=== PATIENT | female | born 1955 | race Caucasian/White ===

== ENCOUNTER → 2016-03-20 | Outpatient (CLI) | payer BC ==
[2016-03-20 12:30] LABS: ABSOLUTE EOSINOPHILS # (AUTO) 0.1 10^3/uL (0.0-0.6); ABSOLUTE LYMPHOCYTES (AUTO) 1.4 10^3/uL (0.5-4.7); ABSOLUTE MONOCYTES (AUTO) 0.4 10^3/uL (0.1-1.4); ABSOLUTE NEUT (AUTO) 3.5 10^3/uL (1.7-8.2); BASOPHILS % (AUTO) 0.8 % (0-2); HEMATOCRIT 41.2 % (36.0-47.0); HEMOGLOBIN 13.7 g/dL (12.0-15.5); HGB HCT DIFFERENCE -0.1; LYMPHOCYTES % (AUTO) 24.9 % (13-45); MEAN CORPUSCULAR HEMOGLOBIN 29.2 pg (27.0-33.4); MEAN CORPUSCULAR HGB CONC 33.2 g/dL (32.0-36.0); MEAN CORPUSCULAR VOLUME 88 fl (80-97); MONOCYTES % (AUTO) 7.8 % (3-13); RED BLOOD COUNT 4.69 10^6/uL (3.72-5.28); SEGMENTED NEUTROPHILS % (AUTO) 64.5 % (42-78); WHITE BLOOD COUNT 5.5 10^3/uL (4.0-10.5)
[2016-03-20 12:58] LABS: ALANINE AMINOTRANSFERASE 26 U/L (9-52); ALBUMIN 4.4 g/dL (3.5-5.0); ALKALINE PHOSPHATASE 141 U/L (38-126); ANION GAP 9 (5-19); ASPARTATE AMINO TRANSFERASE 19 U/L (14-36); BILIRUBIN,TOTAL 0.8 mg/dL (0.2-1.3); BLOOD UREA NITROGEN 13 mg/dL (7-20); CALCIUM 10.5 mg/dL (8.4-10.2); CARBON DIOXIDE 26 mmol/L (22-30); CHLORIDE 107 mmol/L (98-107); CHOLESTEROL 222.56 mg/dL (0-200); CREATININE RESULT 0.66 mg/dL (0.52-1.25); Direct HDL 53 mg/dL (>40); GLUCOSE 85 mg/dL (75-110); POTASSIUM 4.8 mmol/L (3.6-5.0); SODIUM 141.6 mmol/L (137-145); TRIGLYCERIDES 98 mg/dL (<150)
[2016-03-20 13:10] LABS: DIRECT LDL 153 mg/dL (<100)
== END ==
LOC: LAB 12:16
PROVIDERS: ATTEND Specialist
DX: E03.9 Hypothyroidism, unspecified (principal); M05.70 Rheumatoid arthritis with rheumatoid factor of unspecified site without organ or systems involvement; Z13.1 Encounter for screening for diabetes mellitus; Z13.220 Encounter for screening for lipoid disorders
CPT/HCPCS: 36415; 80053; 80061; 82306; 83036; 84443; 85025; 86430

== ENCOUNTER 2016-07-19 00:56 | Emergency (ER) | payer BC ==
[2016-07-19] MEDS ORDERED: METHYLPREDNISOLONE INJ 125 MG/2 ML SDV IV ONE (01:30)
[2016-07-19] MEDS ORDERED: FAMOTIDINE INJ/PF 20 MG/2 ML SDV IV ONE (01:30)
--- NOTE | 2016-07-19 01:31 | ER Document Report ---
ED General - General Chief Complaint: Allergic Reaction Stated Complaint: DIFFICULTY BREATHING/POSSIBLE ALLERGIC REACTION Time Seen by Provider: 07/19/16 01:24 Notes: Patient is a 61-year-old female presents with complaint of sudden onset of urticaria and allergic reaction after eating a feel that she does take. She then started having difficulty breathing. She took her EpiPen as well as 50 mg of Benadryl. Since then her symptoms have improved but her hives continue. She does have a history of recurrent allergic reactions. She is allergic to shellfish. She is also allergic to sulfa medications and aspirin. She says Decadron makes her hallucinate. She has had prednisone and other steroids before without any difficulty. No other complaints at this time. TRAVEL OUTSIDE OF THE [place] IN LAST 30 DAYS: No - Related Data Allergies/Adverse Reactions: aspirin [Aspirin] Allergy (Severe, Verified 03/13/13 10:43) Anaphylaxis Sulfa (Sulfonamide Antibiotics) Allergy (Severe, Verified 03/13/13 10:43) Anaphylaxis Shellfish * [Shellfish] Allergy (Verified 03/17/13 06:54) Anaphylaxis dexamethasone [From Decadron] Adverse Reaction (Verified 03/17/13 07:25) Hallucinations dexamethasone sod phosphate [From Decadron] Adverse Reaction (Verified 03/17/13 07:25) Hallucinations ORANGES Allergy (Severe, Uncoded 03/13/13 10:43) Anaphylaxis Past Medical History - Social History Smoking Status: Never Smoker Frequency of alcohol use: None Drug Abuse: None Family History: Reviewed & Not Pertinent Patient has suicidal ideation: No Patient has homicidal ideation: No - Past Medical History Cardiac Medical History: Denies: Hx Heart Attack, Hx Hypertension Pulmonary Medical History: Reports: Hx Asthma Neurological Medical History: Reports: Hx Migraine. Denies: Hx Cerebrovascular Accident, Hx Seizures Renal/ Medical History: Denies: Hx Peritoneal Dialysis GI Medical History: Denies: Hx Hepatitis, Hx Ulcer Infectious Medical History: Denies: Hx Hepatitis Past Surgical History: Reports: Hx Hysterectomy, Hx Tonsillectomy. Denies: Hx Mastectomy, Hx Open Heart Surgery, Hx Pacemaker - Immunizations Hx Pneumococcal Vaccination: 01/19/13 Review of Systems - Review of Systems Notes: My Normal Review Basic REVIEW OF SYSTEMS: CONSTITUTIONAL : Denies fever, chills, or sweats. Denies recent illness. EENT: Denies eye, ear, throat, or mouth pain or symptoms. Denies nasal or sinus congestion. CARDIOVASCULAR: Denies chest pain. RESPIRATORY: some diffiuclty breathing. GASTROINTESTINAL: Denies abdominal pain. Denies nausea, vomiting, or diarrhea. Denies constipation. Last BM: MUSCULOSKELETAL: Denies neck or back pain or joint pain or swelling. SKIN: diffuse Hives. NEUROLOGICAL: Denies altered mental status or loss of consciousness. Denies headache. Denies weakness or paralysis or loss of use of either side. Denies problems with gait or speech. Denies sensory or motor loss. ALL OTHER SYSTEMS REVIEWED AND NEGATIVE. Physical Exam - Vital signs Vitals: Temp Pulse Resp BP Pulse Ox 97.4 F 74 20 117/73 97 07/19/16 00:58 07/19/16 00:58 07/19/16 00:58 07/19/16 00:58 07/19/16 00:58 - Notes Notes: General Appearance: Well nourished, alert, cooperative, no acute distress, no obvious discomfort. Vitals: reviewed, See vital signs table. Head: no swelling or tenderness to the head Eyes: PERRL, EOMI, Conjuctiva clear Mouth: No tongue swelling. Throat: No Throat swelling. Neck: Supple, no neck tenderness, No thyromegaly Lungs: No wheezing, No rales, No rhonci, No accessory muscle use, good air exchange bilaterally. Heart: Normal rate, Regular rythm, No murmur, no rub Abdomen: Normal BS, soft, No rigidity, No abdominal tenderness, No guarding, no rebound, no abdominal masses, no organomegaly Extremities: strength 5/5 in all extremities, good pulses in all extremities, no swelling or tenderness in the extremities, no edema. Skin:Hives like rash over majority of body Neuro: speech clear, oriented x 3, normal affect, responds appropriately to questions. Course - Vital Signs Vital signs: Temp Pulse Resp BP Pulse Ox 97.4 F 74 15 105/70 97 07/19/16 00:58 07/19/16 00:58 07/19/16 02:31 07/19/16 02:31 07/19/16 02:31 - Transfer of Care Notes: 07/19/16 03:27 Patients's hives are gone. Her lungs are clear. She has no pharyngeal swelling. She looks very well. She will be discharged home with prescription for adrenal Adrenaclick Pen. She is encouraged to take Benadryl for hives recur. She must return to the ER immediately if she continues to have recurrent hives, she has difficulty breathing, difficulty swallowing, or she has to use her pen. Patient agrees with plan and will be discharged home. Discharge - Discharge Clinical Impression: Allergic reaction Qualifiers: Encounter type: initial encounter Qualified Code(s): T78.40XA - Allergy, unspecified, initial encounter Condition: Good Disposition: HOME, SELF-CARE Additional Instructions: ACUTE ALLERGIC REACTION: Your symptoms are due to an allergic reaction. Allergy can cause hives, swelling of the hands, feet, and face, hoarseness, and difficulty swallowing or breathing. It may be due to exposure to medication, animal dander, foods, infection, or insect bites. Medication is a common cause, even when prior use of this same medication caused no problems. Acute treatment may include adrenalin and antihistamines. Usually, the specific allergic agent can't be identified unless repeated episodes occur. Home treatment includes the following: (1) Stop any suspicious medications. This will be discussed with you. (2) Oral antihistamines for the next four to five days. Example, diphenhydramine (Benadryl) every four hours. (3) You may also use cimetidine (Tagamet), ranitidine (Zantac), or famotidine ( Pepcid) every four hours if diphenhydramine is not controlling itching and hives. (4) Avoid aspirin until the hives completely disappear. (5) Avoid hot baths or showers until the hives are completely gone. Call the doctor if faintness, difficulty swallowing, tightness in the chest , or wheezing occurs. EPINEPHRINE: An injection of epinephrine (also called adrenalin) is used to treat allergic reactions, asthma, and some other medical conditions. It is a stimulant medication that consticts blood vessels, relaxes smooth muscles such as in the bronchioles of the lung, elevates blood pressure, and increases heart rate. It can temporarily make you feel very nervous and shakey, but it's affects last only a short time, about 15 to 30 minutes at most. STEROID MEDICATION INJECTION: You have been given an injection of medicine of the cortisone/steroid class. This medication is used to control inflammation or allergy. It is often continued as a pill for a short period of time, until the acute process subsides. There are usually no side effects from short-term use of cortisone-like medications. Some persons feel an increased sense of well-being and are not sleepy at bedtime. Long-term use of cortisone medications is best avoided, unless required for a severe condition. If your condition does not remit, or relapses after the course of corticosteroid medication, you should consult your physician. STEROID MEDICATION: You have been given a medicine of the cortisone/steroid class. This medication is used to control inflammation or allergy. It is usually only given for a short period of time, until the acute process subsides. There are usually no side effects from short-term use of cortisone-like medications. Some persons feel an increased sense of well-being and are not sleepy at bedtime. Long-term use of cortisone medications is best avoided, unless required for a severe condition. If your condition does not remit, or relapses after the course of corticosteroid medication, you should consult your physician. ANTIHISTAMINES: An antihistamine has been given and/or prescribed to control your symptoms. Antihistamines are used for many reasons, including itching, watering eyes, runny nose, allergic swelling, hives, and insect stings. Antihistamines may cause drowsiness, especially with the first dose. Do not operate machinery or drive while under the effects of the medication. Other common side effects include dry mouth and eyes. In older persons, antihistamines can occasionally cause urinary retention, constipation, and trouble focusing the eyes. Do not combine the medication with alcohol, or with any other medication without talking to your doctor. FOLLOW-UP CARE: If you have been referred to a physician for follow-up care, call the physician s office for an appointment as you were instructed or within the next two days. If you experience worsening or a significant change in your symptoms, notify the physician immediately or return to the Emergency Department at any time for re-evaluation. Please use the Adrenaclick pen and return to the ER immediately if you develop you develop difficulty breathing, difficulty swallowing, facial swelling, or feel that your reaction is severe. Please return to the ER if you have worsening rash not responding to Benadryl. Prescriptions: Epinephrine [Adrenaclick] 0.3 mg IM ONCE PRN #1 kit PRN Reason: severe allergic reaction Prednisone 10 mg PO ASDIR #42 tablet Forms: Return to Work
[2016-07-19 03:38] VITALS: BP 109/66
== END 2016-07-19 03:50 | disposition home or self-care (01) ==
LOC: ER 00:56
DX: T78.40XA Allergy, unspecified, initial encounter (principal); R06.02 Shortness of breath; L50.9 Urticaria, unspecified; X58.XXXA Exposure to other specified factors, initial encounter
CPT/HCPCS: 99283; 96374; 96375; J2930; S0028

== ENCOUNTER → 2017-08-06 | Outpatient (CLI) | payer BC ==
[2017-08-06 08:41] LABS: ABSOLUTE BASOPHILS # (AUTO) 0.1 10^3/uL (0.0-0.2); ABSOLUTE EOSINOPHILS # (AUTO) 0.2 10^3/uL (0.0-0.6); ABSOLUTE LYMPHOCYTES (AUTO) 1.4 10^3/uL (0.5-4.7); ABSOLUTE MONOCYTES (AUTO) 0.6 10^3/uL (0.1-1.4); ABSOLUTE NEUT (AUTO) 3.6 10^3/uL (1.7-8.2); BASOPHILS % (AUTO) 0.9 % (0-2); EOSINOPHILS % (AUTO) 3.8 % (0-6); HEMATOCRIT 40.5 % (36.0-47.0); HEMOGLOBIN 13.6 g/dL (12.0-15.5); LYMPHOCYTES % (AUTO) 23.8 % (13-45); MEAN CORPUSCULAR HEMOGLOBIN 29.5 pg (27.0-33.4); MEAN CORPUSCULAR HGB CONC 33.7 g/dL (32.0-36.0); MEAN CORPUSCULAR VOLUME 88 fl (80-97); MONOCYTES % (AUTO) 9.5 % (3-13); PLATELET COUNT 245 10^3/uL (150-450); RED BLOOD COUNT 4.62 10^6/uL (3.72-5.28); RED CELL DISTRIBUTION WIDTH 14.6 % (11.5-14.0); TOTAL CELLS COUNTED % (AUTO) 100 %; WHITE BLOOD COUNT 5.8 10^3/uL (4.0-10.5)
[2017-08-06 09:09] LABS: ALANINE AMINOTRANSFERASE 28 U/L (9-52); ALKALINE PHOSPHATASE 119 U/L (38-126); ANION GAP 9 (5-19); ASPARTATE AMINO TRANSFERASE 22 U/L (14-36); BILIRUBIN,DIRECT 0.3 mg/dL (0.0-0.4); BILIRUBIN,TOTAL 0.6 mg/dL (0.2-1.3); BLOOD UREA NITROGEN 12 mg/dL (7-20); CARBON DIOXIDE 27 mmol/L (22-30); CHLORIDE 108 mmol/L (98-107); CHOLESTEROL 226.05 mg/dL (0-200); GLUCOSE 88 mg/dL (75-110); POTASSIUM 4.7 mmol/L (3.6-5.0); SODIUM 144.2 mmol/L (137-145); TOTAL PROTEIN 6.9 g/dL (6.3-8.2); TRIGLYCERIDES 194 mg/dL (<150)
[2017-08-06 09:20] LABS: DIRECT LDL 136 mg/dL (<100)
[2017-08-06 09:24] LABS: VLDL CHOLESTEROL 38.8 mg/dL (10-31)
[2017-08-06 09:25] LABS: FREE T4 (FREE THYROXINE) 1.22 ng/dL (0.78-2.19)
[2017-08-06 09:39] LABS: THYROID STIMULATING HORMONE 6.1 uIU/mL (0.47-4.68)
== END ==
LOC: LAB 08:20
PROVIDERS: ATTEND Physician Assistant
DX: E03.9 Hypothyroidism, unspecified (principal); Z13.220 Encounter for screening for lipoid disorders; Z79.899 Other long term (current) drug therapy
CPT/HCPCS: 36415; 80053; 80061; 84439; 84443; 85025

== ENCOUNTER → 2017-11-05 | Outpatient (CLI) | payer BC ==
[2017-11-05 14:26] LABS: FREE T4 (FREE THYROXINE) 1.46 ng/dL (0.78-2.19)
[2017-11-05 14:39] LABS: THYROID STIMULATING HORMONE 1.85 uIU/mL (0.47-4.68)
== END ==
LOC: LAB 13:29
PROVIDERS: ATTEND Physician Assistant
DX: E03.9 Hypothyroidism, unspecified (principal)
CPT/HCPCS: 36415; 84439; 84443

== ENCOUNTER → 2018-02-19 | Outpatient (CLI) | payer BC ==
[2018-02-19 10:48] LABS: ABSOLUTE EOSINOPHILS # (AUTO) 0.2 10^3/uL (0.0-0.6); ABSOLUTE LYMPHOCYTES (AUTO) 1.5 10^3/uL (0.5-4.7); ABSOLUTE MONOCYTES (AUTO) 0.5 10^3/uL (0.1-1.4); ABSOLUTE NEUT (AUTO) 3.5 10^3/uL (1.7-8.2); BASOPHILS % (AUTO) 0.8 % (0-2); EOSINOPHILS % (AUTO) 2.7 % (0-6); HEMATOCRIT 40.3 % (36.0-47.0); HEMOGLOBIN 13.7 g/dL (12.0-15.5); LYMPHOCYTES % (AUTO) 27.1 % (13-45); MEAN CORPUSCULAR HEMOGLOBIN 29.6 pg (27.0-33.4); MEAN CORPUSCULAR HGB CONC 33.9 g/dL (32.0-36.0); MEAN CORPUSCULAR VOLUME 87 fl (80-97); MONOCYTES % (AUTO) 8.5 % (3-13); PLATELET COUNT 248 10^3/uL (150-450); RED BLOOD COUNT 4.62 10^6/uL (3.72-5.28); RED CELL DISTRIBUTION WIDTH 14.5 % (11.5-14.0); SEGMENTED NEUTROPHILS % (AUTO) 60.9 % (42-78); TOTAL CELLS COUNTED % (AUTO) 100 %; WHITE BLOOD COUNT 5.7 10^3/uL (4.0-10.5)
[2018-02-19 11:16] LABS: ALANINE AMINOTRANSFERASE 31 U/L (9-52); ALBUMIN 4.4 g/dL (3.5-5.0); ALKALINE PHOSPHATASE 149 U/L (38-126); ANION GAP 8 (5-19); ASPARTATE AMINO TRANSFERASE 25 U/L (14-36); BILIRUBIN,DIRECT 0.1 mg/dL (0.0-0.4); BILIRUBIN,TOTAL 0.3 mg/dL (0.2-1.3); BLOOD UREA NITROGEN 14 mg/dL (7-20); CALCIUM 10.2 mg/dL (8.4-10.2); CARBON DIOXIDE 30 mmol/L (22-30); CHLORIDE 103 mmol/L (98-107); GLUCOSE 103 mg/dL (75-110); POTASSIUM 4.9 mmol/L (3.6-5.0); SODIUM 140.9 mmol/L (137-145); TOTAL PROTEIN 6.9 g/dL (6.3-8.2); TRIGLYCERIDES 204 mg/dL (<150)
[2018-02-19 11:27] LABS: DIRECT LDL 150 mg/dL (<100)
[2018-02-19 11:35] LABS: VLDL CHOLESTEROL 40.8 mg/dL (10-31)
== END ==
LOC: LAB 10:08
PROVIDERS: ATTEND Physician Assistant
DX: E78.2 Mixed hyperlipidemia (principal); Z79.899 Other long term (current) drug therapy
CPT/HCPCS: 36415; 80053; 80061; 84443; 85025

== ENCOUNTER → 2018-03-13 | Outpatient (CLI) | payer BC | LOC: LAB 10:44 | PROVIDERS: ATTEND Physician Assistant | DX: R94.5 Abnormal results of liver function studies (principal) | CPT/HCPCS: 36415; 82306; 82977; 83970 ==

== ENCOUNTER → 2018-04-25 | Outpatient (CLI) | payer BC ==
--- NOTE | 2018-04-25 19:17 | XCELERA REPORT ---
[address] [address] Transthoracic Echocardiogram Report Name: FILEMON BURGESS Age: 62 yrs Gender: Female : 1955 Patient Status: Outpatient Patient Location: [facility] Study Date: 04/25/2018 02:50 PM Height: 62 in Weight: 210 lb BSA: 2.0 m2 Procedure: A complete two-dimensional transthoracic echocardiogram was performed (2D, M-mode, spectral and color flow Doppler). The study was technically adequate with some images being suboptimal in quality. Reason For Study: MURMUR Ordering Physician: PO AU Performed By: Lisa Wu Interpretation Summary The left ventricular ejection fraction is normal. There is borderline concentric left ventricular hypertrophy. The left ventricle is grossly normal size. LV diastolic function could not be adequately assessed. Wall motion cannot be accurately commented on, but no definite regional wall motion abnormalities noted. The right ventricle is mildly dilated. Borderline right atrial enlargement. Borderline left atrial enlargement. There is a trace to mild amount of mitral regurgitation There is no mitral valve stenosis. There is no aortic valve stenosis No aortic regurgitation is present. There is a trace to mild amount of tricuspid regurgitation The pulmonic valve is not well visualized. The aortic root is not well visualized but is probably normal size. The inferior vena cava appeared normal and decreased < 50% with respiration (RAP 10-15 mmHg) There is no pericardial effusion. MMode/2D Measurements & Calculations RVDd: 3.2 cm LVIDd: 4.0 cm FS: 34.8 % Ao root diam: 2.7 cm IVSd: 0.95 cm LVIDs: 2.6 cm EDV(Teich): Ao root area: 71.1 ml LVPWd: 0.93 cm 5.7 cm2 ESV(Teich): 25.2 ml EF(Teich): 64.6 % EDV(MOD-sp4): SV(MOD-sp4): 78.5 ml 52.2 ml ESV(MOD-sp4): 26.3 ml EF(MOD-sp4): 66.5 % Doppler Measurements & Calculations MV E max luda: MV dec slope: Ao V2 max: LV V1 max P.6 cm/sec 148.8 cm/sec 4.9 mmHg MV A max luda: 468.4 cm/sec2 Ao max PG: LV V1 max: 67.6 cm/sec MV dec time: 0.18 sec8.9 mmHg 110.8 cm/sec MV E/A: 1.3 LV dP/dt: 2238 mmHg/s PA V2 max: PI end-d luda: TR max luda: 138.7 cm/sec 93.8 cm/sec 265.9 cm/sec PA max P.7 mmHg TR max P.3 mmHg Left Ventricle The left ventricle is grossly normal size. There is borderline concentric left ventricular hypertrophy. The left ventricular ejection fraction is normal. LV diastolic function could not be adequately assessed. Wall motion cannot be accurately commented on, but no definite regional wall motion abnormalities noted. Right Ventricle The right ventricle is mildly dilated. There is normal right ventricular wall thickness. The right ventricular systolic function is normal. Atria Borderline right atrial enlargement. Borderline left atrial enlargement. Interarterial septum not well visualized and not well dopplered. Cannot comment on ASD/PFO presence. Mitral Valve The mitral valve leaflets are sclerotic, but show no functional abnormalities. There is no mitral valve stenosis. There is a trace to mild amount of mitral regurgitation. Aortic Valve The aortic valve is grossly normal. There is no aortic valve stenosis. No aortic regurgitation is present. Tricuspid Valve The tricuspid valve is not well visualized, but is grossly normal. There is no tricuspid stenosis. There is a trace to mild amount of tricuspid regurgitation. There is mild pulmonary hypertension by echo. Right ventricular systolic pressure is estimated to be elevated at 30-40mmHg. Pulmonic Valve The pulmonic valve is not well visualized. Great Vessels The aortic root is not well visualized but is probably normal size. The inferior vena cava appeared normal and decreased < 50% with respiration (RAP 10-15 mmHg). Effusions There is no pericardial effusion. : PO AU > Melissa Childers
== END ==
LOC: SP 14:49
PROVIDERS: ATTEND Physician Assistant
DX: R01.1 Cardiac murmur, unspecified (principal)
CPT/HCPCS: 93306

== ENCOUNTER → 2018-06-24 | Outpatient (CLI) | payer BC ==
[2018-06-24 09:58] LABS: ALANINE AMINOTRANSFERASE 21 U/L (9-52); ALBUMIN 3.8 g/dL (3.5-5.0); ALKALINE PHOSPHATASE 133 U/L (38-126); AMYLASE 44 U/L (30-110); ANION GAP 10 (5-19); ASPARTATE AMINO TRANSFERASE 22 U/L (14-36); BILIRUBIN,DIRECT 0.2 mg/dL (0.0-0.4); BILIRUBIN,TOTAL 0.5 mg/dL (0.2-1.3); BLOOD UREA NITROGEN 14 mg/dL (7-20); CALCIUM 9.9 mg/dL (8.4-10.2); CARBON DIOXIDE 27 mmol/L (22-30); CHLORIDE 106 mmol/L (98-107); CHOLESTEROL 175.68 mg/dL (0-200); GLUCOSE 94 mg/dL (75-110); LIPASE 55.9 U/L (23-300); POTASSIUM 4.5 mmol/L (3.6-5.0); SODIUM 142.7 mmol/L (137-145); TOTAL PROTEIN 6.6 g/dL (6.3-8.2); TRIGLYCERIDES 148 mg/dL (<150)
[2018-06-24 10:09] LABS: DIRECT LDL 107 mg/dL (<100)
[2018-06-24 10:14] LABS: FREE T4 (FREE THYROXINE) 1.5 ng/dL (0.78-2.19)
[2018-06-24 11:00] LABS: THYROID STIMULATING HORMONE 2.06 uIU/mL (0.47-4.68)
[2018-06-25 10:55] LABS: CARBOHYDRATE ANTIGEN 19-9 6 U/mL (0-35)
[2018-06-25 14:19] LABS: CALCITONIN SERUM <2.0 pg/mL (0.0-5.0)
== END ==
LOC: LAB 08:14
PROVIDERS: ATTEND Physician Assistant
DX: E03.9 Hypothyroidism, unspecified (principal); E21.3 Hyperparathyroidism, unspecified; E78.2 Mixed hyperlipidemia; Z80.0 Family history of malignant neoplasm of digestive organs; R94.5 Abnormal results of liver function studies
CPT/HCPCS: 36415; 80053; 80061; 82150; 82308; 82330; 83690; 83970; 84439; 84443; 86301

== ENCOUNTER → 2018-07-17 | Outpatient (CLI) | payer BC ==
--- NOTE | 2018-07-17 08:58 | WOMENS IMAGING REPORT ---
EXAM DESCRIPTION: BONE DENSITY HIP/SPINE COMPLETED DATE/TIME: 07/17/2018 8:25 am REASON FOR STUDY: Z78.0 AYSMPTOMATIC MENOPAUSAL STATE Z78.0 ASYMPTOMATIC MENOPAUSAL STATE R94.5 AB NORMAL RESULTS OF LIVER FUNCTION STUDIES COMPARISON: None. TECHNIQUE: Dual-Energy X-ray Absorptiometry (DEXA) of the AP Spine and Hip. LIMITATIONS: None. FINDINGS: LUMBAR SPINE: The bone mineral density (BMD) measured from L1-L4 in the AP projection correlates with a T-score of -1.4, which is osteopenia as defined by the World Health Organization. HIP: The bone mineral density (BMD) measured in the left hip correlates with a T-score of -1.8, which is o steopenia as defined by the World Health Organization. IMPRESSION: 1. LUMBAR SPINE: OSTEOPENIA. 2. HIP: OSTEOPENIA. COMMENT: The World Health Organization defines low BMD as follows: T-score: Normal: Greater than -1.0 Osteopenia: Between -1.0 and -2.5 Osteoporosis: Less than -2.5 without fractures Established osteoporosis: Less than -2.5 with fractures In general, you may wish to consider: Diagnosis Treatment Follow-up DEXA Normal BMD Prevention 2-3 years Osteopenia Prevention/Therapy 1-2 years Osteoporosis Therapy Yearly TECHNICAL DOCUMENTATION: JOB ID: [id number] [employer]- All Rights Reserved Reading location - IP/workstation name: [email or web address]
--- NOTE | 2018-07-17 09:34 | WOMENS IMAGING REPORT ---
EXAM DESCRIPTION: U/S ABDOMEN TOTAL COMPLETED DATE/TIME: 07/17/2018 8:36 am REASON FOR STUDY: Z78.0 AYSMPTOMATIC MENOPAUSAL STATE, R94.5 ABNORMAL RESULTS OF LIVER FUNCTI Z78.0 ASYMPTOMATIC MENOPAUSAL STATE R94.5 ABNORMAL RESULTS OF LIVER FUNCTION STUDIES COMPARISON: None. TECHNIQUE: Dynamic and static grayscale images acquired of the abdomen and recorded on PACS. Additio nal selected color Doppler and spectral images recorded. Note: Study does not meet criteria for a complete doppler/duplex scan LIMITATIONS: None. FINDINGS: PANCREAS: No masses. Visualized pancreatic duct normal caliber. LIVER: Echotexture is coarse with increased echogenicity consistent with fatty infiltration. LIVER VASCULATURE: Normal directional flow of the main portal vein and hepatic veins. GALLBLADDER: No stones. Normal wall thickness. No pericholecystic fluid. ULTRASOUND-DETECTED LARES'S SIGN: Negative. INTRAHEPATIC DUCTS AND COMMON DUCT: CBD and intrahepatic ducts normal caliber. No filling defects. INFERIOR VENA CAVA: Normal flow. AORTA: No aneurysm. RIGHT KIDNEY: Normal size. Normal echogenicity. No solid or suspicious masses. No hydronephrosis. No calcifications. LEFT KIDNEY: Normal size. Normal echogenicity. No solid or suspicious masses. No hydronephrosis. No calcifications. SPLEEN:Normal size. No solid masses. PERITONEAL AND PLEURAL SPACES: No ascites or effusions. OTHER: No other significant finding. IMPRESSION: FATTY LIVER. NO OTHER SIGNIFICANT FINDING. TECHNICAL DOCUMENTATION: JOB ID: [id number] [employer]- All Rights Reserved Reading location - IP/workstation name: [email or web address]
== END ==
LOC: EDSTATUS 07:45 → RAD 07:46
PROVIDERS: ATTEND Physician Assistant
DX: M85.88 Other specified disorders of bone density and structure, other site (principal); K76.0 Fatty (change of) liver, not elsewhere classified; Z78.0 Asymptomatic menopausal state; R94.5 Abnormal results of liver function studies
CPT/HCPCS: 76700; 77080

== ENCOUNTER → 2018-11-22 | Outpatient (CLI) | payer BC ==
[2018-11-22 12:11] LABS: ABSOLUTE EOSINOPHILS # (AUTO) 0.2 10^3/uL (0.0-0.6); ABSOLUTE LYMPHOCYTES (AUTO) 1.2 10^3/uL (0.5-4.7); ABSOLUTE MONOCYTES (AUTO) 0.4 10^3/uL (0.1-1.4); ABSOLUTE NEUT (AUTO) 3.7 10^3/uL (1.7-8.2); BASOPHILS % (AUTO) 0.8 % (0-2); EOSINOPHILS % (AUTO) 3.1 % (0-6); HEMATOCRIT 39.9 % (36.0-47.0); HEMOGLOBIN 13.4 g/dL (12.0-15.5); LYMPHOCYTES % (AUTO) 22.2 % (13-45); MEAN CORPUSCULAR HGB CONC 33.5 g/dL (32.0-36.0); MEAN CORPUSCULAR VOLUME 87 fl (80-97); MONOCYTES % (AUTO) 7.2 % (3-13); PLATELET COUNT 246 10^3/uL (150-450); RED BLOOD COUNT 4.61 10^6/uL (3.72-5.28); RED CELL DISTRIBUTION WIDTH 14.6 % (11.5-14.0); SEGMENTED NEUTROPHILS % (AUTO) 66.7 % (42-78); TOTAL CELLS COUNTED % (AUTO) 100 %; WHITE BLOOD COUNT 5.5 10^3/uL (4.0-10.5)
[2018-11-22 12:23] LABS: ALBUMIN 4.3 g/dL (3.5-5.0); ALKALINE PHOSPHATASE 145 U/L (38-126); ANION GAP 11 (5-19); ASPARTATE AMINO TRANSFERASE 26 U/L (14-36); BILIRUBIN,DIRECT 0.1 mg/dL (0.0-0.4); BILIRUBIN,TOTAL 0.6 mg/dL (0.2-1.3); BLOOD UREA NITROGEN 12 mg/dL (7-20); CARBON DIOXIDE 27 mmol/L (22-30); CHLORIDE 102 mmol/L (98-107); CHOLESTEROL 220.01 mg/dL (0-200); GLUCOSE 90 mg/dL (75-110); POTASSIUM 4.3 mmol/L (3.6-5.0); TOTAL PROTEIN 7.2 g/dL (6.3-8.2); TRIGLYCERIDES 176 mg/dL (<150)
[2018-11-22 12:34] LABS: DIRECT LDL 136 mg/dL (<100)
[2018-11-22 12:39] LABS: FREE T3 2.86 pg/mL (2.77-5.27); FREE T4 (FREE THYROXINE) 1.51 ng/dL (0.78-2.19); VLDL CHOLESTEROL 35.2 mg/dL (10-31)
[2018-11-22 12:53] LABS: THYROID STIMULATING HORMONE 1.06 uIU/mL (0.47-4.68)
[2018-11-24 08:00] LABS: CALCITONIN SERUM <2.0 pg/mL (0.0-5.0)
== END ==
LOC: LAB 11:32
PROVIDERS: ATTEND Physician Assistant
DX: E03.9 Hypothyroidism, unspecified (principal); E21.3 Hyperparathyroidism, unspecified; E78.2 Mixed hyperlipidemia; Z79.899 Other long term (current) drug therapy
CPT/HCPCS: 36415; 80053; 80061; 82308; 82397; 83970; 84439; 84443; 84481; 85025

== ENCOUNTER → 2019-05-29 | Outpatient (CLI) | payer BC ==
[2019-05-29 12:34] LABS: ALBUMIN 4.2 g/dL (3.5-5.0); ALKALINE PHOSPHATASE 133 U/L (38-126); ANION GAP 8 (5-19); ASPARTATE AMINO TRANSFERASE 28 U/L (14-36); BILIRUBIN,TOTAL 0.5 mg/dL (0.2-1.3); BLOOD UREA NITROGEN 16 mg/dL (7-20); CALCIUM 9.9 mg/dL (8.4-10.2); CARBON DIOXIDE 26 mmol/L (22-30); CHLORIDE 103 mmol/L (98-107); CHOLESTEROL 176.72 mg/dL (0-200); GLUCOSE 83 mg/dL (75-110); POTASSIUM 4.6 mmol/L (3.6-5.0); TRIGLYCERIDES 116 mg/dL (<150)
[2019-05-29 12:45] LABS: DIRECT LDL 111 mg/dL (<100)
[2019-05-29 12:51] LABS: FREE T4 (FREE THYROXINE) 1.78 ng/dL (0.78-2.19)
[2019-05-29 13:05] LABS: THYROID STIMULATING HORMONE 0.68 uIU/mL (0.47-4.68)
== END ==
LOC: OD 11:27
PROVIDERS: ATTEND Physician Assistant
DX: E78.2 Mixed hyperlipidemia (principal); E03.9 Hypothyroidism, unspecified; E55.9 Vitamin D deficiency, unspecified
CPT/HCPCS: 36415; 80053; 80061; 82306; 84439; 84443

== ENCOUNTER 2019-09-21 23:46 | Emergency (ER) | payer BC ==
--- NOTE | 2019-09-22 02:12 | RADIOLOGY REPORT (SQ) ---
CLINICAL INDICATION: fall, pain, deformity. . TECHNIQUE: 3 view(s) were obtained of the right wrist. COMPARISON: None. FINDINGS: Impacted comminuted dorsally angulated and mildly dorsally displaced fracture of the distal radius. There is disruption of the articular surface. Small avulsion fracture of the ulnar styloid. Osteoarthritis. Soft tissue swelling. IMPRESSION: Colles' fracture, as described.
[2019-09-22] MEDS ORDERED: FENTANYL CITRATE INJ/PF 100 MCG/2 ML AMPUL IM ONE (03:23)
[2019-09-22] MEDS ORDERED: LIDOCAINE 2% INJ (20 MG/ML) 20 ML MDV INJ ONE (03:24)
[2019-09-22] MEDS ORDERED: ONDANSETRON 4 MG TAB.RAPDIS PO ONE (03:24)
--- NOTE | 2019-09-22 03:42 | ER Document Report ---
ED Fall - General Chief Complaint: Fall Stated Complaint: FELL/RIGHT WRIST INJURY/ RIGHT SIDE HIP INJURY Time Seen by Provider: 09/22/19 03:15 Primary Care Provider: PO AU PA-C [Primary Care Provider] - Follow up as needed JAEL KHANNA DO [ACTIVE STAFF] - Follow up as needed Notes: CHIEF COMPLAINT: Right wrist injury from fall HPI: 64-year-old female presenting to the emergency department for evaluation of a right wrist injury from a mechanical fall. Landed on the right wrist. States she struck her right hip region on the corner of the shower but has been able to weight-bear. Denies numbness or tingling in the fingertips. ROS: See HPI - all other systems were reviewed and are otherwise negative Constitutional: no fever Eyes: no drainage, no blurred vision ENT: no runny nose, no sore throat Cardiovascular: no chest pain Resp: no SOB, no cough GI: no vomiting, no diarrhea, no abdominal pain : no dysuria Integumentary: no rash Allergy: no hives Musculoskeletal: Positive extremity pain or swelling Neurological: no numbness/tingling, no weakness MEDICATIONS: I agree with the patient medications as charted by the RN. ALLERGIES: I agree with the allergies as charted by the RN. PAST MEDICAL HISTORY/PAST SURGICAL HISTORY: Reviewed and agree as charted by RN. SOCIAL HISTORY: Reviewed and agree as charted by RN. FAMILY HISTORY: No significant familial comorbid conditions directly related to patient complaint EXAM: Reviewed vital signs as charted by RN. CONSTITUTIONAL: Alert and oriented and responds appropriately to questions. Well-appearing; well-nourished HEAD: Normocephalic; atraumatic EYES: Conjunctivae clear, sclerae non-icteric ENT: normal nose; no rhinorrhea; moist mucous membranes NECK: Supple without meningismus CARD: Capillary refill less than 3 seconds; symmetric distal pulses RESP: Normal chest excursion without splinting or tachypnea ABD/GI: non-distended BACK: The back appears normal and is non-tender to palpation, there is no CVA tenderness EXT: Does appear to be soft tissue swelling of the right wrist on the radial side. Some limited flexion extension of the right wrist secondary to pain. No radial head discomfort on palpation of the right elbow. Sensation is intact in the fingertips of the right hand with capillary refill less than 3 seconds. Limited abduction of the right thumb secondary to pain SKIN: Normal color for age and race; warm; dry; good turgor; no acute lesions noted NEURO: Moves all extremities equally; Motor and sensory function intact PSYCH: The patient's mood and manner are appropriate. Grooming and personal [place] are appropriate. MDM: 64-year-old female with mildly displaced and angulated distal radial fracture, also a slight ulnar styloid fracture. Discussed at length with the patient. Discussed with attending. Will place patient in a splint after reduction with hematoma block. I discussed the procedure at length with the patient who verbalizes understanding and agreement with the procedure for the reduction. TRAVEL OUTSIDE OF THE [place] IN LAST 30 DAYS: No - Related data Allergies/Adverse Reactions: aspirin [Aspirin] Allergy (Severe, Verified 03/13/13 10:43) Anaphylaxis Sulfa (Sulfonamide Antibiotics) Allergy (Severe, Verified 03/13/13 10:43) Anaphylaxis Shellfish * [Shellfish] Allergy (Verified 03/17/13 06:54) Anaphylaxis dexamethasone [From Decadron] Adverse Reaction (Verified 03/17/13 07:25) Hallucinations dexamethasone sod phosphate [From Decadron] Adverse Reaction (Verified 03/17/13 07:25) Hallucinations ORANGES Allergy (Severe, Uncoded 03/13/13 10:43) Anaphylaxis Past Medical History - Social History Smoking Status: Never Smoker Chew tobacco use (# tins/day): No Frequency of alcohol use: None Drug Abuse: None Family History: Reviewed & Not Pertinent Patient has homicidal ideation: No - Past Medical History Cardiac Medical History: Denies: Hx Heart Attack, Hx Hypertension Pulmonary Medical History: Reports: Hx Asthma Neurological Medical History: Reports: Hx Migraine. Denies: Hx Cerebrovascular Accident, Hx Seizures Renal/ Medical History: Denies: Hx Peritoneal Dialysis GI Medical History: Denies: Hx Hepatitis, Hx Ulcer Infectious Medical History: Denies: Hx Hepatitis Past Surgical History: Reports: Hx Hysterectomy, Hx Tonsillectomy. Denies: Hx Mastectomy, Hx Open Heart Surgery, Hx Pacemaker - Immunizations Hx Pneumococcal Vaccination: 01/19/13 Physical Exam - Vital signs Vitals: Temp Pulse Resp BP Pulse Ox 97.6 F 67 20 133/73 H 100 09/22/19 00:24 09/22/19 00:24 09/22/19 00:24 09/22/19 00:24 09/22/19 00:24 Course - Re-evaluation Re-evalutation: 09/22/19 04:39 On my review of the patient's postreduction x-ray there does appear to be some improvement in the angulation but I believe that the fracture fragment slid slightly during splinting. Patient is neurovascularly intact. She tolerated the reduction well. Will discharge to follow-up with Dr. Patino per patient's request - Vital Signs Vital signs: Temp Pulse Resp BP Pulse Ox 97.6 F 67 20 133/73 H 100 09/22/19 00:24 09/22/19 00:24 09/22/19 00:24 09/22/19 00:24 09/22/19 00:24 Procedures - Immobilization Right Wrist Time completed: 04:40 Pre-Proc Neuro Vasc Exam: Normal Immobilizer type: Sugar tong Performed by: PCT Post-Proc Neuro Vasc Exam: Normal, Unchanged from pre-exam Alignment checked and good: Yes - Joint Reduction/Fracture Care Right Wrist Time completed: 04:41 Consent obtained: Yes - Verbal Conscious sedation: No Pre-procedure NV exam: Yes Fracture: Closed Manipulation comment: Hematoma block with 2% lidocaine 3 mL with good results. Manual reduction Post-procedure NV exam: Yes Post-reduction x-ray: Joint not reduced Reduction attempts: 1 Complications: No Notes: 09/22/19 04:41 Clinical improvement in the fracture angulation during reduction. On review of the x-ray post reduction it appears that the fracture fragment has slid again although there is still some improvement in the angulation. She is neurovascularly intact post procedure will discharge to follow-up with orthopedics Discharge - Discharge Clinical Impression: Fall Qualifiers: Encounter type: initial encounter Qualified Code(s): W19.XXXA - Unspecified fall, initial encounter Colles' fracture Qualifiers: Encounter type: initial encounter Fracture type: closed Laterality: right Qualified Code(s): S52.531A - Colles' fracture of right radius, initial encounter for closed fracture Condition: Stable Disposition: HOME, SELF-CARE Instructions: Fractured Radius ([facility]), Temporary Splint ([facility]) Additional Instructions: 1. splint for comfort 2. medicines for pain as prescribed, no driving on narcotics 3. ice the wrist three times daily for swelling for 10 minutes at a time, do not place ice directly on skin 4. follow up with orthopedics for further evaluation and treatment, call for appt with Dr. Patino Prescriptions: Hydrocodone/Acetaminophen [[place] 5-325 mg Tablet] 1 tab PO Q4 PRN #15 tablet PRN Reason: Referrals: PO AU PA-C [Primary Care Provider] - Follow up as needed JAEL KHANNA DO [ACTIVE STAFF] - Follow up as needed
[2019-09-22] MEDS ORDERED: HYDROCODONE/ACETAMINOPHEN 5-325 MG (6 TAB/ER DISP) PO PRN (04:44)
--- NOTE | 2019-09-22 04:55 | RADIOLOGY REPORT (SQ) ---
EXAM DESCRIPTION: XR WRIST 3 OR MORE VIEWS COMPLETED DATE/TME: 09/22/2019 04:13 CLINICAL HISTORY: 64 years, Female, post reduction COMPARISON: 09/22/2019 5:00 AM NUMBER OF VIEWS: Three TECHNIQUE: Three views of the right wrist LIMITATIONS: None. FINDINGS: Overlying fiberglass splint has been placed and obscures fine bony detail. The previously described comminuted fracture involving the distal radius with intra-articular extension demonstrates improved anatomic alignment with decreased dorsal displacement. A nondisplaced ulnar styloid fracture is again noted. Soft tissue swelling surrounding the wrist. IMPRESSION: Interval placement of a fiberglass splint which obscures fine bony detail. Near anatomic alignment of the previously described comminuted distal radial fracture with intra-articular extension. Nondisplaced ulnar styloid fracture. copyright 2010 [email or web address]- All Rights Reserved
[2019-09-22 05:05] VITALS: BP 130/71
== END 2019-09-22 05:05 | disposition home or self-care (01) ==
LOC: ER 23:46
PROC: 0PSHXZZ Reposition Right Radius, External Approach (ICD-10-PCS; principal; 2019-09-21)
PROC: 0PSKXZZ Reposition Right Ulna, External Approach (ICD-10-PCS; 2019-09-21)
DX: S52.531A Colles' fracture of right radius, initial encounter for closed fracture (principal); S52.611A Displaced fracture of right ulna styloid process, initial encounter for closed fracture; S79.911A Unspecified injury of right hip, initial encounter; M25.531 Pain in right wrist; W19.XXXA Unspecified fall, initial encounter; J45.909 Unspecified asthma, uncomplicated
CPT/HCPCS: 25605; 99284; 96372; 73110; J3490; S0119; J3010

== ENCOUNTER 2019-09-26 05:27 | Day surgery (SDC) | payer BC ==
[2019-09-23 15:03] LABS: ABSOLUTE EOSINOPHILS # (AUTO) 0.2 10^3/uL (0.0-0.6); ABSOLUTE LYMPHOCYTES (AUTO) 1.2 10^3/uL (0.5-4.7); ABSOLUTE MONOCYTES (AUTO) 0.3 10^3/uL (0.1-1.4); ABSOLUTE NEUT (AUTO) 3.5 10^3/uL (1.7-8.2); BASOPHILS % (AUTO) 0.7 % (0-2); EOSINOPHILS % (AUTO) 2.9 % (0-6); HEMATOCRIT 39.3 % (36.0-47.0); HEMOGLOBIN 13.4 g/dL (12.0-15.5); LYMPHOCYTES % (AUTO) 22.9 % (13-45); MEAN CORPUSCULAR HEMOGLOBIN 30.2 pg (27.0-33.4); MEAN CORPUSCULAR HGB CONC 34.1 g/dL (32.0-36.0); MEAN CORPUSCULAR VOLUME 89 fl (80-97); MONOCYTES % (AUTO) 6.3 % (3-13); PLATELET COUNT 221 10^3/uL (150-450); RED BLOOD COUNT 4.44 10^6/uL (3.72-5.28); RED CELL DISTRIBUTION WIDTH 15.2 % (11.5-14.0); SEGMENTED NEUTROPHILS % (AUTO) 67.2 % (42-78); TOTAL CELLS COUNTED % (AUTO) 100 %; WHITE BLOOD COUNT 5.2 10^3/uL (4.0-10.5)
[2019-09-23 15:30] LABS: ANION GAP 9 (5-19); BLOOD UREA NITROGEN 12 mg/dL (7-20); CALCIUM 10.2 mg/dL (8.4-10.2); CARBON DIOXIDE 29 mmol/L (22-30); CHLORIDE 103 mmol/L (98-107); GLUCOSE 93 mg/dL (75-110); POTASSIUM 5.1 mmol/L (3.6-5.0)
[~2019-09-26 05:27] MED LIST: CEFAZOLIN 2 GM/D5W RTU 2 GM/50 ML RTUPB IV ONE
[2019-09-26] MEDS ORDERED: DEXAMETHASONE SOD PHOSPHATE INJ 4 MG/1 ML VIAL ONE ×2 (06:21→07:40)
[2019-09-26] MEDS ORDERED: ONDANSETRON HCL INJ/PF 4 MG/2 ML SDV ONE (06:21)
[2019-09-26] MEDS ORDERED: FENTANYL CITRATE INJ/PF 100 MCG/2 ML AMPUL ONE (06:21)
[2019-09-26] MEDS ORDERED: MIDAZOLAM 2 MG/2 ML INJ ONE (06:21)
[2019-09-26] MEDS ORDERED: PROPOFOL INJ 200 MG/20 ML VIAL IV ONE (06:22)
[2019-09-26] MEDS ORDERED: LIDOCAINE 0.5% INJ-PF (5 MG/ML) 50 ML SDV ONE (06:25)
[2019-09-26] MEDS ORDERED: LIDOCAINE 1% INJ-PF (10 MG/ML) 30 ML SDV ONE (07:03)
[2019-09-26] MEDS ORDERED: BUPIVACAINE HCL 0.25 % INJ/PF (2.5 MG/1 ML) 30 ML VIAL ONE (07:03)
[2019-09-26] MEDS ORDERED: OXYCODONE HCL IR 5 MG TABLET PO PRN (07:07)
[2019-09-26] MEDS ORDERED: EPINEPHRINE INJ/PF 1 MG/1 ML AMPULE ONE (07:40)
[2019-09-26] MEDS ORDERED: ROPIVACAINE HCL 0.5% INJ/PF (5 MG/1 ML) 30 ML SDV ONE ×2 (07:41→08:32)
[2019-09-26] MEDS ORDERED: PROMETHAZINE HCL INJ 25 MG/1 ML VIAL IV PRN ×2 (08:38)
[2019-09-26] MEDS ORDERED: MORPHINE SULFATE 10 MG/ML INJ IV PRN (08:38)
[2019-09-26] MEDS ORDERED: FENTANYL CITRATE INJ/PF 100 MCG/2 ML AMPUL IV PRN ×3 (08:38)
[2019-09-26] MEDS ORDERED: MEPERIDINE HCL/PF INJ 25 MG/1 ML DISP.SYRIN IV PRN (08:38)
[2019-09-26] MEDS ORDERED: DIPHENHYDRAMINE HCL 50 MG/ML VIAL IV PRN (08:38)
[2019-09-26] MEDS ORDERED: ONDANSETRON HCL INJ/PF 4 MG/2 ML SDV IV PRN (08:38)
--- NOTE | 2019-09-26 08:52 | Operative Report ---
Operative Report DATE OF SURGERY: 09/26/19 PREOPERATIVE DIAGNOSIS: Right distal radius and ulna fracture, intra-articular POSTOPERATIVE DIAGNOSIS: Right distal radius and ulna intra-articular fracture. OPERATION: Open reduction internal fixation right distal radius SURGEON: SAMUEL MOTLEY JR ANESTHESIA: GA COMPLICATIONS: None ESTIMATED BLOOD LOSS: 10 cc PROCEDURE: Patient was brought to the operating suite and laid supine on the operating table. They were given 2 g Ancef preoperatively. After adequate anesthesia the right upper extremity was then prepped and draped in standard sterile fashion. A timeout was performed. A volar incision utilizing FCR interval was made. We carried our dissection down to the pronator quadratus which was reflected off the anterior cortex. After this the fracture was identified and was able to be reduced under direct visualization. A plate was selected and using fluoroscopy was appropriate position on the bone. A screw was placed in the oblong hole to allow for ideal plate positioning. This was left loose while we placed the distal row of screw holes. This was done in order to achieve appropriate volar angulation of the distal radius fragment. Following placing the distal row of screws we tightened the oblong hole which helped to achieve reduction in appropriate volar angulation. The proximal row of the distal screws was placed with nonlocking screws in order to achieve reduction of the plate to bone. 1 of these was replaced with a locking screw due to inadequate purchase. Finally the remaining proximal screws were placed with nonlocking screws. Fluoroscopy was used to ensure that there is no cortical penetration dorsally and that the plate was well-positioned on bone to avoid any prominence or tendon irritation. The wound was then copiously irrigated with sterile saline solution. The tourniquet was deflated in order to evaluate for any potential bleeders. These were cauterized with Bovie cautery. 3-0 Monocryl suture was used in inverted interrupted fashion followed by a 3-0 nylon in a running horizontal mattress fashion. The patient was then placed in a sterile dressing and then a well- padded volar plaster splint. She was then awakened from anesthesia and transferred the PACU in stable condition.
--- NOTE | 2019-09-26 08:55 | Discharge Summary ---
Discharge Summary (SDC) - Discharge Final Diagnosis: Right distal radius and ulna intra-articular fracture Date of Surgery: 09/26/19 Condition: Stable Treatment or Instructions: Maintain splint until seen in the office. Keep clean and dry. Keep arm elevated. Ice and pain control as previously prescribed. Take vitamin C 500 twice a day for the next 6 weeks for prophylaxis against neuropathic type pain. Nonweightbearing right upper extremity. Prescriptions: Oxycodone HCl [Oxy-Ir 5 mg Tablet] 5 mg PO Q4HP PRN #35 tablet PRN Reason: Referrals: PO AU PA-C [Primary Care Provider] - Respiratory Treatments at Home: Deep Breathing/Coughing Discharge Activity: No Lifting/Push/Pulling Report the Following to Your Physician Immediately: Shortness of Breath, Fever over 101 Degrees, Unusual Bleeding, Drainage-Yellow
[2019-09-26] MEDS: FENTANYL CITRATE INJ/PF 100 MCG/2 ML AMPUL ONE ×4 (08:59→09:33)
[2019-09-26] MEDS ORDERED: OXYCODONE HCL IR 5 MG TABLET ONE (10:06)
--- NOTE | 2019-09-26 10:10 | EKG REPORT ---
SEVERITY:- OTHERWISE NORMAL ECG - SINUS RHYTHM BORDERLINE LEFT AXIS DEVIATION : Confirmed by: Melissa Childers 26-Sep-2019 10:09:26
[2019-09-26] MEDS ORDERED: HYDROMORPHONE HCL INJ/PF 2 MG/ML AMPULE ONE (11:11)
[2019-09-26] MEDS ORDERED: OXYCODONE HCL SR 10 MG TABLET PO ONE (11:11)
--- NOTE | 2019-09-26 12:17 | RADIOLOGY REPORT (SQ) ---
EXAM DESCRIPTION: NO CHG FLUORO; WRIST RIGHT 2 VIEWS IMAGES COMPLETED DATE/TIME: 09/26/2019 9:00 am REASON FOR STUDY: ORIF RIGHT WRIST ASSISTED WITH FLUORO IN OR COMPARISON: None. FLUOROSCOPY TIME: 15 seconds 4 Images saved to PACS LIMITATIONS: None. PROCEDURE: ORIF right wrist FINDINGS: Images from fluoro document placement of a volar compression plate with multiple screws. IMPRESSION: ORIF right wrist. Refer to operative note for further information. COMMENT: PQRS 6045F: Fluoroscopy time of the procedure is documented in the report. TECHNICAL DOCUMENTATION: JOB ID: [id number] 2010 [employer] All Rights Reserved Reading location - IP/workstation name: [email or web address]
--- NOTE | 2019-09-26 12:17 | RADIOLOGY REPORT (SQ) ---
EXAM DESCRIPTION: NO CHG FLUORO; WRIST RIGHT 2 VIEWS IMAGES COMPLETED DATE/TIME: 09/26/2019 9:00 am REASON FOR STUDY: ORIF RIGHT WRIST ASSISTED WITH FLUORO IN OR COMPARISON: None. FLUOROSCOPY TIME: 15 seconds 4 Images saved to PACS LIMITATIONS: None. PROCEDURE: ORIF right wrist FINDINGS: Images from fluoro document placement of a volar compression plate with multiple screws. IMPRESSION: ORIF right wrist. Refer to operative note for further information. COMMENT: PQRS 6045F: Fluoroscopy time of the procedure is documented in the report. TECHNICAL DOCUMENTATION: JOB ID: [id number] 2010 [employer]- All Rights Reserved Reading location - IP/workstation name: [email or web address]
[2019-09-26 12:31] VITALS: BP 115/69
[2019-09-26] MEDS ORDERED: SUCCINYLCHOLINE CHLORIDE INJ 200 MG/10 ML VIAL ONE (14:30)
== END 2019-09-26 12:20 | disposition home or self-care (01) ==
LOC: OROUT 05:27
PROVIDERS: ATTEND Orthopaedic Surgery
DX: S52.691A Other fracture of lower end of right ulna, initial encounter for closed fracture (principal); S52.501A Unspecified fracture of the lower end of right radius, initial encounter for closed fracture; W19.XXXA Unspecified fall, initial encounter; J45.909 Unspecified asthma, uncomplicated; D64.9 Anemia, unspecified; E03.9 Hypothyroidism, unspecified; I10 Essential (primary) hypertension; Z79.899 Other long term (current) drug therapy; Z88.8 Allergy status to other drugs, medicaments and biological substances; Z88.2 Allergy status to sulfonamides; Z03.818 Encounter for observation for suspected exposure to other biological agents ruled out
CPT/HCPCS: 36415 ×2; 84132; 85025; 87635; 80048; 73100; 93005; 93010; 64415; 76942; 01830; 25607; C1713 ×7; J2795; J2250; J1100; J0171; J3010; J3490; J1170; J0330; J2405; J2704; J0690; C9803

== ENCOUNTER → 2019-11-20 | Outpatient (CLI) | payer BC ==
[2019-11-20 12:00] LABS: ALBUMIN 4.3 g/dL (3.5-5.0); ALKALINE PHOSPHATASE 125 U/L (38-126); ANION GAP 8 (5-19); ASPARTATE AMINO TRANSFERASE 34 U/L (14-36); BILIRUBIN,DIRECT 0.3 mg/dL (0.0-0.4); BILIRUBIN,TOTAL 0.6 mg/dL (0.2-1.3); BLOOD UREA NITROGEN 11 mg/dL (7-20); CALCIUM 10.5 mg/dL (8.4-10.2); CARBON DIOXIDE 28 mmol/L (22-30); CHLORIDE 105 mmol/L (98-107); CHOLESTEROL 198.58 mg/dL (0-200); GLUCOSE 87 mg/dL (75-110); POTASSIUM 4.7 mmol/L (3.6-5.0); TRIGLYCERIDES 238 mg/dL (<150)
[2019-11-20 12:11] LABS: DIRECT LDL 114 mg/dL (<100)
[2019-11-20 12:14] LABS: FREE T4 (FREE THYROXINE) 1.27 ng/dL (0.78-2.19)
[2019-11-20 12:16] LABS: VLDL CHOLESTEROL 47.6 mg/dL (10-31)
[2019-11-20 12:28] LABS: THYROID STIMULATING HORMONE 0.88 uIU/mL (0.47-4.68)
== END ==
LOC: OD 10:25
PROVIDERS: ATTEND Physician Assistant
DX: E78.2 Mixed hyperlipidemia (principal); E03.9 Hypothyroidism, unspecified; E55.9 Vitamin D deficiency, unspecified
CPT/HCPCS: 36415; 80053; 80061; 82306; 84439; 84443

== ENCOUNTER → 2020-02-05 | Outpatient (CLI) | payer BC ==
[~2020-02-05] MED LIST changes: -CEFAZOLIN 2 GM/D5W RTU 2 GM/50 ML RTUPB IV ONE; +COVID-19 VACCINE (PFIZER)/PF 30 MCG/0.3 ML VIAL IM ONE; +EPINEPHRINE INJ/PF 1 MG/1 ML AMPULE IM PRN
== END ==
LOC: EMPHEALTH 08:01
PROVIDERS: ATTEND Internal Medicine
DX: Z23 Encounter for immunization (principal)
CPT/HCPCS: 91300

== ENCOUNTER → 2020-02-26 | Outpatient (CLI) | payer BC ==
--- OUTSIDE RECORDS SUMMARY | 2020-02-26 07:52 | XMS REPORT ---
:1955 [facility] [place] [address] [place] [address] Care Team Providers Name Role Phone Unavailable Unavailable Unavailable Allergies, Adverse Reactions, Alerts Allergy Allergy Status Severity Reaction(s) Onset Inactive Treating C omments Name Type Date Date Clinician [place] Allergy to Active substance Shellfish Allergy to Active Derived substance Sulfa Allergy to Active (Sulfonamid substance e Antibiotics ) Aspirin Allergy to Active substance Medications Ordered Filled Start Stop Current Ordering Indication Dosage Frequency Signature Comments Components Medication Medication Date Date Medication? Clinician (SIG) Name Name Crestor 10 No 1 Q1D Crestor 10 mg tablet mg tablet Take 1 Take 1 tablet tablet every day every day by oral by oral route. route. hydrocodone No 1 Q7H hydrocodon 10 e 10 mg-acetamin mg-acetami ophen 325 nophen 325 mg tablet mg tablet Take 1 Take 1 tablet tablet every 6-8 every 6-8 hours by hours by oral route oral route for 3 days. for 3 days. levothyroxi No 1 Q1D levothyrox ne 150 mcg ine 150 tablet TAKE mcg tablet 1 TABLET BY TAKE 1 MOUTH EVERY TABLET BY DAY IN THE MOUTH MORNING EVERY DAY IN THE MORNING losartan 50 No 1 Q1D losartan mg tablet 50 mg TAKE 1 tablet TABLET BY TAKE 1 MOUTH EVERY TABLET BY DAY MOUTH EVERY DAY tolterodine No 1capsul Q1D tolterodin ER 4 mg e(s) e ER 4 mg capsule,ext capsule,ex ended tended release 24 release 24 hr TAKE 1 hr TAKE 1 CAPSULE BY CAPSULE BY MOUTH EVERY MOUTH MORNING EVERY MORNING desonide No desonide 0.05 % 0.05 % topical topical ointment ointment APPLY SMALL APPLY AMOUNT TO SMALL AFFECTED AMOUNT TO AREAS AND AFFECTED THEN APPLY AREAS AND AQUAPHOR THEN APPLY OINTMENT AQUAPHOR TWICE A DAY OINTMENT EXTERNALLY TWICE A DAY EXTERNALLY Flovent HFA No Flovent 44 HFA 44 mcg/actuati mcg/actuat on aerosol ion inhaler aerosol INHALE 2 inhaler PUFFS EVERY INHALE 2 12 HOURS PUFFS NEEDED EVERY 12 HOURS NEEDED oxycodone 5 No oxycodone mg tablet 5 mg tablet telmisartan No telmisarta 40 mg n 40 mg tablet TAKE tablet 1 TABLET BY TAKE 1 MOUTH EVERY TABLET BY DAY MOUTH EVERY DAY albuterol No albuterol sulfate HFA sulfate 90 HFA 90 mcg/actuati mcg/actuat on aerosol ion inhaler aerosol INHALE 1 inhaler PUFF EVERY INHALE 1 12 HOURS PUFF EVERY NEEDED 12 HOURS NEEDED ipratropium No ipratropiu 0.5 m 0.5 mg-albutero mg-albuter l 3 mg (2.5 ol 3 mg mg base)/3 (2.5 mg mL base)/3 mL nebulizatio nebulizati n soln USE on soln 1 VIAL IN USE 1 VIAL NEBULIZER IN EVERY 8 NEBULIZER HOURS EVERY 8 NEEDED HOURS NEEDED meloxicam No meloxicam 15 mg 15 mg tablet TAKE tablet 1 TABLET BY TAKE 1 MOUTH EVERY TABLET BY DAY MOUTH EVERY DAY rosuvastati No rosuvastat n 10 mg in 10 mg tablet TAKE tablet 1 TABLET BY TAKE 1 MOUTH TABLET BY EVERYDAY AT MOUTH BEDTIME EVERYDAY AT BEDTIME meclizine No meclizine 25 mg 25 mg tablet tablet NEEDED 1 NEEDED 1 TAB BY TAB BY MOUTH 3 MOUTH 3 TIMES A DAY TIMES A FOR VERTIGO DAY FOR VERTIGO tizanidine No tizanidine 2 mg tablet 2 mg TAKE 1 tablet TABLET BY TAKE 1 MOUTH AT TABLET BY ONSET OF MOUTH AT PAIN ONSET OF NEEDED PAIN DAILY NEEDED DAILY Problems Condition Condition Condition Status Onset Resolution Last Treatin g Comments Name Details Category Date Date Treatment Clinician Date History of History of Problem Active fracture Fracture 02-10 00:00: 00 Hypertensiv Hypertensiv Problem Active e disorder e Disorder 09-22 00:00: 00 Asthma Asthma Problem Active 09-22 00:00: 00 Pain of Pain of Problem Active right wrist Right Wrist 09-22 00:00: 00 Hypothyroid Hypothyroid Problem Active ism ism 09-22 00:00: 00 Anemia Anemia Problem Active 09-22 00:00: 00 Fracture of Fracture of Problem Inactiv distal end Distal End e 7-18 of radius of Radius 00:00: 00 Procedures Procedure Date / Time Performed Performing Clinician Kym e RADIOLOGIC EXAM WRIST 3 VIEWS 2020-02-11 00:00:00 RADIOLOGIC EXAM WRIST 3 VIEWS 2019-12-03 00:00:00 RADIOLOGIC EXAM WRIST 3 VIEWS 2019-10-20 00:00:00 RADIOLOGIC EXAM WRIST 3 VIEWS 2019-10-06 00:00:00 Open Treatment, Distal Radial 2019-09-26 00:00:00 Extra-articular Fracture or Epiphyseal Separation (Surg) Tonsillectomy Hysterectomy DELIVERY Results This patient has no known results. Assessments Condition Name Status Diagnosis Date Treating Clinici an Fracture of distal end of radius Active 2020-02-11 13:3 5:26 History of fracture Active 2020-02-11 13:36:24 Fracture of distal end of radius Active 2019-12-03 08:0 1:57 Fracture of distal end of radius Active 2019-10-20 15:0 2:42 Fracture of distal end of radius Active 2019-10-06 08:0 1:23 Pain of right wrist Active 2019-10-06 20:45:04 Closed extraarticular fracture of Active 2019-09-24 07: 50:17 distal radius Encounters Start End Encounter Admission Attending Care Care Encounter Date/Time Date/Time Type Type Clinicians Facility Department ID 2020-02-11 2020-02-11 Magdi Pteer [id number] 00:00:00 00:00:00 [facility] [id number] [facility] DO: [address], [address], [place] [address] , Ph. 2019-12-03 2019-12-03 Magdi Peter [id number] 00:00:00 00:00:00 [facility] [id number] [facility] DO: [address], [address], [place] [address] , Ph. 2019-10-20 2019-10-20 Magdi Peter [id number] 00:00:00 00:00:00 [facility] [id number] [facility] DO: [address], [address], [place] [address] , Ph. 2019-10-06 2019-10-06 Magdi Peter [id number] 00:00:00 00:00:00 [facility] [id number] [facility] DO: [address], [address], [place] [address] , Ph. 2019-09-23 2019-09-23 Magdi Peter [id number] 00:00:00 00:00:00 [facility] [id number] [facility] DO: [address], [address], [facility] [place] [address] , Ph. Social History Smoking Status Start Date Stop Date Never Smoker Vital Signs Vital Name Observation Time Observation Value Comments Height 2020-02-11 00:00:00 62 [in_i] Height 2019-12-03 00:00:00 62 [in_i] Height 2019-10-20 00:00:00 62 [in_i] BMI (Body Mass Index) 2019-10-20 00:00:00 40.2 kg/m2 Body Weight 2019-10-20 00:00:00 220 [lb_av] BP Diastolic 2019-10-06 00:00:00 70 mm[Hg] Height 2019-10-06 00:00:00 62 [in_i] BMI (Body Mass Index) 2019-10-06 00:00:00 40.2 kg/m2 BP Systolic 2019-10-06 00:00:00 120 mm[Hg] Body Weight 2019-10-06 00:00:00 220 [lb_av] Hospital Discharge Instructions 1. Fracture of distal end of radius XR, wrist, 3 or more view 2. History of fracture Discussion Note: None recorded. Patient educational handouts: No information available.1. Fracture of distal end of radius XR, wrist Discussion Note: None recorded. Patient educational handouts: No information available.1. Closed extraarticular fracture of distal radius Discussion Note: None recorded. Patient educational handouts: No information available.
== END ==
LOC: EMPHEALTH 07:48
PROVIDERS: ATTEND Internal Medicine
DX: Z23 Encounter for immunization (principal)
CPT/HCPCS: 91300